=== PATIENT | female | born 1990 | race Caucasian/White ===

== ENCOUNTER 2016-07-13 02:43 | Inpatient (IN) | payer OTHER ==
[~2016-07-13] VITALS: Ht 157.5 cm; Wt 62.1 kg
[2016-07-13] VITALS (13 sets, daily range): BP systolic 93–110; BP diastolic 47–69; PULSE 120–140; RESP 16–29; O2SAT 85–100
[~2016-07-13 02:43] MED LIST: Albuterol 2.5 mg/3 mL Inhalation Solution NEB ONE; Albuterol-Ipratropium 3 mL Inhalation Solution ONE
[2016-07-13] MEDS ORDERED: Albuterol 2.5 mg/3 mL Inhalation Solution NEB ONE ×2 (02:45→02:50)
[2016-07-13] MEDS ORDERED: 0.9% Sodium Chloride 1,000 ML IV ONE (02:46)
[2016-07-13] MEDS ORDERED: Dexamethasone 10 mg/mL Inj IVPUSH ONE (02:50)
[2016-07-13] MEDS ORDERED: Magnesium Sulf 2 Gm/50mL Water 2 GM in IV Premix 1 EACH IV ONE (02:50)
[2016-07-13] MEDS ORDERED: Albuterol-Ipratropium 3 mL Inhalation Solution NEB ONE (02:50)
--- NOTE | 2016-07-13 02:59 | ED.REPORT ---
HPI-Dyspnea / Wheezing Date of Service Jul 13, 2016 ED Provider: Dimas Javier MD Patient is a 26 year old female with a history of asthma previously requiring intubation for asthma exacerbations who presents to the ED via EMS in respiratory distress that began just prior to arrival. Patient was seen by EMS earlier tonight for shortness of breath but refused transport. She had access to her inhalers but her not her nebulizer. She received several nebulizer treatments from EMS. EMS was called back to the residence several hours later. They found the patient with an O2 sat in the 70s and tachycardic. She received 125mg of Solu-Medrol, 2x doses of epinephrine, and continuous albuterol treatments, improved to the 80s on arrival to the ED.. Patient is very anxious and has been requesting a benzodiazepine for her anxiety. The patient quit smoking cigarettes 3 weeks ago but still lives in a trailer with other smokers. Patient is unable to provide any history due to her severe respiratory distress. Nursing Notes Stated Complaint: SOB Chief Complaint: Respiratory Distress Nursing Notes Reviewed: Yes Allergies: Coded Allergies: No Known Allergies (Unverified , 07/13/16) General Time Seen by MD: 02:45 Chief Complaint Asthma attack Hx Obtained From: Patient Unable to Obtain Hx: Patient condition Arrived By: Ambulance Sudden in Onset?: No Onset Occurred: Just prior to arrival Context of Onset: Asthma attack Symptom Duration: Since onset Similar Sx Previous: Yes Past Medical History Past Medical History previous hospital admissions for asthma exacerbations, with intubation Reports: Asthma Past Surgical History none reported Smoking History Former Smoker (quit 3 weeks ago, lives with other smokers) Social History Other Social History: Local resident Ambulatory Status Independent Review of Systems Unable to Obtain ROS Patient condition (patient is in respiratory distress) Physical Exam Initial Vital Signs Vital Signs (First) Date Time Temp Pulse Resp B/P Pulse Ox O2 Delivery O2 Flow Rate FiO2 07/13/16 02:43 135 29 85 Non-Rebreather 10 07/13/16 03:16 107/69 07/13/16 03:44 40 Initial VS: Reviewed Head / Eyes: Atraumatic, Normocephalic, PERRL ENT: Conjunctiva normal, No scleral icterus Neurologic: Alert, Nonfocal General/Constitutional: Awake Distress / Hydration: Positive: Distress severe Behavior: Positive: Anxious Neck: Supple, No JVD Respiratory / Chest: No rales, No rhonchi Resp Distress / Stridor: Positive: Resp distress severe Wheezing / Retractions: Positive: Wheeze insp/exp diffuse Hyperventilating. Overt wheezing with prolonged expiratory phase. Cardiovascular: Regular rhythm, Heart sounds NL Heart Rate / Rhythm: Positive: Tachycardia Abdomen: Soft, Non-tender, No guarding, No rebound Lower Extremity / Pelvis / MS: No swelling, No edema Skin: Warm Color / Condition: Positive: Diaphoresis present Upper Extremity / MS: No swelling, No edema Interpretation & Diagnostics Lab Results Interpretation Result Diagram: 07/13/16 0250 07/13/16 0250 Test 07/13/16 02:50 White Blood Count 19.2th/mm3 (3.8-10.1) Red Blood Count 4.67mil/mm3 (3.90-5.20) Hemoglobin 14.1g/dL (12.0-15.6) Hematocrit 42.1% (35.0-46.0) Mean Corpuscular Volume 90.1fL (81-100) Mean Corpuscular Hemoglobin 30.2pg (27.0-35.0) Mean Corpuscular Hemoglobin Concent 33.5% (32.0-37.0) Red Cell Distribution Width 12.8% (12.3-15.4) Platelet Count 549bil/L (150-400) Neutrophils (%) (Auto) 37% (40-74) Lymphocytes (%) (Auto) 54% (14-46) Monocytes (%) (Auto) 2% (4-12) Eosinophils (%) (Auto) 7% (0-5) Basophils (%) (Auto) 0% (0-3) Band Neutrophils % 0% (1-5) Prothrombin Time 11.5sec (8.1-12.5) Prothromb Time International Ratio 1.07ratio Activated Partial Thromboplast Time 26.0sec (22.8-33.0) Sodium Level 142mEq/L (134-144) Potassium Level 4.2mEq/L (3.5-5.2) Chloride Level 105mEq/L (97-108) Carbon Dioxide Level 22mmol/L (18-29) Blood Urea Nitrogen 14mg/dL (6-20) Creatinine 0.74mg/dL (0.57-1.00) Estimat Glomerular Filtration Rate 138mL/min (>59) Glucose Level 162mg/dL (60-99) Calcium Level 8.7mg/dL (8.5-10.1) Magnesium Level 2.2mg/dL (1.6-2.6) Total Bilirubin 0.2mg/dL (0.0-1.2) Aspartate Amino Transf (AST/SGOT) 19U/L (0-50) Alanine Aminotransferase (ALT/SGPT) 21U/L (0-32) Alkaline Phosphatase 85U/L (25-150) Troponin T 0.010ug/L (0.0-0.011) Pro-B-Type Natriuretic Peptide 22pg/mL (0-130) Total Protein 6.7g/dL (6.4-8.4) Albumin 4.0g/dL (3.4-5.0) Procalcitonin 0.04ng/mL (0.00-0.08) Hold Morel Top Tube Received (Received) ABG Interpretation ABG Interpretation: pH: 7.244 pCO2: 58 cBase: -3.6 Exam Performed by: [facility] pract Exam Interpreted by: ED physician X-Ray Chest Interpretation Chest Xray Interpretation: Impression: Air trapping, no acute infiltrate. View: Portable Interpretation / Wet Read by: Wet read ED physician Re-Eval/Medical Decision Med Decision/Clinical Course 26-year-old with severe asthma presents in extremis with hypoxemia and hypercarbia. Initially she was unable to tolerate BiPAP, but with a very small dose of Ativan, has been calm her and able to tolerate it. Repeat blood gas is improved, though not normal. She has been on continuous nebs, received also Decadron for a slightly speedier response, as well as magnesium IV. She is admitted now to the ICU for further evaluation and management. Chest x-rays without evidence of infiltration. Source of Hx: Old records Re-Evaluation/Progress #1: Time of Eval: 02:47 Re-Evaluation/Progress Note: The patient is to be placed on BiPAP. However she is refusing BiPAP until she has received anxiety medication. Re-Evaluation/Progress #2: Time of Eval: 03:03 Re-Evaluation/Progress Note: Rechecked the patient. She continues to refuse BiPAP. Re-Evaluation/Progress #3: Time of Eval: 03:31 Re-Evaluation/Progress Note: Patient continues to have difficulty breathing but is improved. She is now on BiPAP. Re-Evaluation/Progress #4: Time of Eval: 04:08 Re-Evaluation/Progress Note: Rechecked the patient. Her prolonged expiratory phase is improved. Consultation : Referral / Consult Name: Isaiah Nicole MD Consulted With: Hospitalist Call Returned at: 04:19 Fine Arts Chair: Will see patient, Agrees with eval, Agrees with plan, Accepts admit Note: Spoke with Dr. Nicole, hospitalist, who agrees to accept admit. Counseled Regarding: Diagnosis, Lab results, Need for admission Discharge & Departure Impression: Primary Impression: Respiratory distress Additional Impression: Status asthmaticus Asthma severity: unspecified severity Qualified Code: J45.902 - Unspecified asthma with status asthmaticus Disposition: ADMITTED TO HOSPITAL Discharge Condition All VS Reviewed: Yes Condition: Critical Referrals: Juan Encinas MD (PCP) Crit Care Except Billable Proc Time Spent: 30-74 minutes (sixty minutes) Services Performed: Patient management by me, Time spent at bedside, Reviewing test results, Reviewing imaging, Discussing patient care, Documentation in record Scribe Attestation Portions of this note were transcribed by Roxanne Watt. I, Dr. Javier personally performed the history, physical exam and medical decision-making; I reviewed and confirmed the accuracy of the information in the transcribed note. Signed by: Dixie Conte, 07/13/2016 0423 copies to: Juan Encinas MD, Christopher W MD Jul 13, 2016 02:59 Roxanne Watt Jul 13, 2016 03:00
[2016-07-13 03:00] LABS: Mean Corpuscular Hemoglobin 30.2 pg (27.0-35.0); Mean Corpuscular Volume 90.1 fL (81-100)
[2016-07-13 03:16] LABS: BASOPHILS % (AUTO) 0 % (0-3); EOSINOPHILS % (AUTO) 7 % (0-5); MONOCYTES % (AUTO) 2 % (4-12); NEUTROPHILS % (AUTO) 37 % (40-74); Platelet Count 549 bil/L (150-400)
--- NOTE | 2016-07-13 03:18 | ABG ---
DateTimeAnalyzed 03:12:00 -_ pH ____7.244 - 7.350 7.450 pCO2 ___58.1__ -mmHg 35.0 45.0 pO2 ___94.2__ -mmHg 69.0 116 HCO3- ___24.2__ -mmol/L 22.0 26.0 ABE ___-3.6__ -mmol/L -2.0 2.0 tHb ___13.4__ -g/dL O2Hb ___94.5__ -% COHb ____0.6__ -% MetHb ____0.8__ -% sO2 ___95.8__ -% FIO2 ___48.0__ -% Drawn By MM - Date/Time Notified____ 03:17:00 -_ Spontaneous_RR ___24.0__ -b/min Liter_Flow ____7.0__ -L/min Oxygen Device 1 SVN - Notified By MM - Notified Whom DR JACK - B 751 -mmHg tO2 ___17.9__ -Vol% Americo test _Positive -
[2016-07-13 03:23] LABS: INR 1.07 ratio
[2016-07-13 03:31] LABS: Magnesium 2.2 mg/dL (1.6-2.6)
[2016-07-13 03:32] LABS: TROPONIN T 0.01 ug/L (0.0-0.011)
[2016-07-13] MEDS ORDERED: Senna-Docusate 8.6-50 mg Tablet PO PRN (04:20)
[2016-07-13] MEDS ORDERED: Alum-Mag Hydrox-Simeth 30 mL Suspension PO PRN (04:20)
[2016-07-13] MEDS ORDERED: Polyethylene Glycol (PEG) 17 Gm Powder PO PRN (04:20)
[2016-07-13] MEDS ORDERED: Ondansetron 2 mg/mL 2 mL Inj IVPUSH PRN (04:20)
--- NOTE | 2016-07-13 04:24 | ABG ---
DateTimeAnalyzed 04:19:00 -_ pH ____7.317 - 7.350 7.450 pCO2 ___44.4__ -mmHg 35.0 45.0 pO2 110 -mmHg 69.0 116 HCO3- ___22.1__ -mmol/L 22.0 26.0 ABE ___-3.5__ -mmol/L -2.0 2.0 tHb ___12.4__ -g/dL O2Hb ___96.4__ -% COHb ____0.6__ -% MetHb ____1.0__ -% sO2 ___98.0__ -% FIO2 ___40.0__ -% CPAP ___12.0__ -cmH2O PEEP ____5.0__ -cmH2O Set_RR ___22.0__ -b/min Drawn By MM - Date/Time Notified____ 04:24:00 -_ Spontaneous_RR ___27.0__ -b/min Oxygen Device 1 ____BIPAP - Notified By MM - Notified Whom DR JACK - B 751 -mmHg tO2 ___17.0__ -Vol% Americo test _Positive -
--- NOTE | 2016-07-13 04:30 | PCM.HPMED ---
Subjective Date of Service Jul 13, 2016 Primary Provider: Admitting Physician: Primary Care Physician: Juan Encinas MD Attending Physician: Admit Status: From the Emergency Department, Full Admit, Critical Care Chief Complaint: Acute shortness of breathe History of Present Illness: Georgia Sanchez is a 26 year old female with Asthma who presents to [facility] emergency department via EMS in acute respiratory distress. Patient reported the onset was just prior to arrival. Patient was seen by EMS earlier tonight but refused transport. She had access to her inhalers but her not her nebulizer, receiving several nebulizer treatments from EMS. They left her improved, but were then called back to the residence several hours later as she developed difficulty breathing again. Trigger was likely dogs at the home and possible allergies from pollens. Denies any new carpets They found the patient with low saturation around 70s and tachycardic. She received 125mg of Solu-Medrol, 2x doses of epinephrine, and continuous albuterol treatments. Patient is very anxious and has been requesting a benzodiazepine for her anxiety. The patient quit smoking cigarettes 3 weeks ago but still lives in a trailer with other smokers. Patient is unable to provide any further history due to her severe respiratory distress. Case discussed with Dr Javier, Magnesium and rounds of bronchodilator initially ineffective but BIPAP provide some improvement, especially addition of benzodiazepines while calmed her down Review of Systems: Pertinent positives as noted in HPI. All other systems were reviewed and are negative Allergies Coded Allergies: No Known Allergies (Unverified , 07/13/16) Home Medications inhalers PMH Asthma Anxiety disorder . Surgical History Denies Family History Both parents healthy Social History Hx Alcohol Use: No Hx Substance Use: No Hx Tobacco Use: Yes Smoking Status: Former Smoker (quit 3 weeks ago, lives with other smokers) Living Arrangement: with Family Exam Vital Signs Vital Sign - Last Date Time Temp Pulse Resp B/P Pulse Ox O2 Delivery O2 Flow Rate FiO2 07/13/16 03:44 132 27 100 BiPAP 40 07/13/16 03:16 107/69 10 Exam General: Alert, Oriented X3, Cooperative, No acute Distress Eyes: PERRLA, Scleral Anicteric Mouth: Mouth Normal, Mucous Membranes Moist/[place] Neck: Supple, no Thyromegaly, trachea central. Chest & Lungs: Clear to auscultation & percussion, No adventitious breath sounds, no crackles, no wheeze Cardiovascular: Normal S1, Normal S2, No Murmurs/Rubs/Gallops, Regular Rate/ Rhythm, Murmur, Other (No JVD, no peripheral edema) Pulses: Radial (present and equal), Dorsalis Pedi (present and equal) Abdomen: Soft, Non-tender, Non-distended, Normoactive bowel tones. Musculoskeletal: Unremarkable. Normal range of motion, no swollen or erythematous joints Extremities: No edema, no cyanosis, no clubbing. Skin: No rashes. Warm and dry, no erythematous areas Neurological: Grossly neurologically intact, has generalized weakness, Normal Speech, Sensation Intact Lymphatic: Lymph nodes Cervical and Axillary not palpable. Lab and Diagnostics Labs Laboratory Tests Test 07/13/16 02:50 White Blood Count 19.2th/mm3 (3.8-10.1) Red Blood Count 4.67mil/mm3 (3.90-5.20) Hemoglobin 14.1g/dL (12.0-15.6) Hematocrit 42.1% (35.0-46.0) Mean Corpuscular Volume 90.1fL (81-100) Mean Corpuscular Hemoglobin 30.2pg (27.0-35.0) Mean Corpuscular Hemoglobin Concent 33.5% (32.0-37.0) Red Cell Distribution Width 12.8% (12.3-15.4) Platelet Count 549bil/L (150-400) Neutrophils (%) (Auto) 37% (40-74) Lymphocytes (%) (Auto) 54% (14-46) Monocytes (%) (Auto) 2% (4-12) Eosinophils (%) (Auto) 7% (0-5) Basophils (%) (Auto) 0% (0-3) Band Neutrophils % 0% (1-5) Prothrombin Time 11.5sec (8.1-12.5) Prothromb Time International Ratio 1.07ratio Activated Partial Thromboplast Time 26.0sec (22.8-33.0) Sodium Level 142mEq/L (134-144) Potassium Level 4.2mEq/L (3.5-5.2) Chloride Level 105mEq/L (97-108) Carbon Dioxide Level 22mmol/L (18-29) Blood Urea Nitrogen 14mg/dL (6-20) Creatinine 0.74mg/dL (0.57-1.00) Estimat Glomerular Filtration Rate 138mL/min (>59) Glucose Level 162mg/dL (60-99) Calcium Level 8.7mg/dL (8.5-10.1) Magnesium Level 2.2mg/dL (1.6-2.6) Total Bilirubin 0.2mg/dL (0.0-1.2) Aspartate Amino Transf (AST/SGOT) 19U/L (0-50) Alanine Aminotransferase (ALT/SGPT) 21U/L (0-32) Alkaline Phosphatase 85U/L (25-150) Troponin T 0.010ug/L (0.0-0.011) Pro-B-Type Natriuretic Peptide 22pg/mL (0-130) Total Protein 6.7g/dL (6.4-8.4) Albumin 4.0g/dL (3.4-5.0) Procalcitonin 0.04ng/mL (0.00-0.08) Hold Morel Top Tube Received (Received) Result Diagram: 07/13/1624907/13/16249 Assessment & Plan Georgia Sanchez is a 26 year old female with Asthma who presents to [facility] emergency department via EMS in acute respiratory distress. 1. Acute Hypoxic Respiratory Failure. Present on admission Due to Asthma exacerbation. Differential diagnosis includes Pulmonary embolism ( low probability with low Well score), Pneumonia also felt to be less likely. - oxygen supplementation and BIPAP - treat underlying cause (see below) 2. Asthma exacerbation. Present on admission Severe with prior history of exacerbation requiring intubation. Trigger unclear but a combination of pollen and dog hair exposure - continue DuoNeb scheduled - systemic steroids Solu-Medrol 80 IV q 8 hours - avoid triggers - smoking cessation encouraged - Singulair daily - Pulmonology consult planned 3. Leukocytosis, Acute with possible Systemic inflammatory response. Present on admission Chest X ray showed no pneumonia of pleural effusion - monitor for infection such as pneumonia - possible patient has a viral infection 4. Thrombocytosis, Chronic Likely reactive with no complications 5. Nicotine dependence Cessation discussed and encouraged. Failed attempts to stop prior, last smoking 3 weeks prior but is a current second hand exposure - Nicotine patch upon request - Acetaminophen as needed for mild pain/fever/headache - Bowel regimen as needed - Antiemetic as needed Patient admitted under inpatient status with expected length of stay > 2 midnights for severity of present symptoms, complexities of treatment plan and risk for adverse event. VTE Prophylaxis: Sub-Q Heparin (Unfractionated) Resuscitation Status: CPR: Attempt Resuscitation Time spent 50 minutes Critical care time spend Isaiah Nicole MD Jul 13, 2016 04:30
[2016-07-13] MEDS: Albuterol-Ipratropium 3 mL Inhalation Solution NEB SCH ×5 (05:11→19:40)
--- NOTE | 2016-07-13 05:40 | NUR ---
Admit note: Pt arrived to room 2015 per cart from ED at 0450. Pt is drowsy to lightly sedated does mumble when asked questions. Pt lefted over to bed with assist x4. Pt was on Bipap at 30% 02/21. Monitor applied shows sinus tach 120-130s spo3 96-100%. Dr Nicole into see pt.
[2016-07-13] MEDS: Heparin 5,000 Unit/mL Inj SUBQ SCH ×2 (07:45→15:28)
[2016-07-13] MEDS: MethylprednisoLONE Sodium Succinate 40 mg/mL Inj IVPUSH SCH ×2 (07:45→16:30)
[2016-07-13] MEDS ORDERED: LORazepam 2 mg Tablet PO ONE (07:55)
--- NOTE | 2016-07-13 08:16 | PCM.PNMED ---
Subjective Date of Service Jul 13, 2016 Subjective She is feeling very anxious. She does have some history of anxiety. She is still short of breath. No chest pain. No abdominal pain. She is concerned about cellulitis in her legs and notes that they have both been red for several days. No fevers or chills. She has been intubated once in the past. Exam Vital Signs Vital Sign - Last Date Time Temp Pulse Resp B/P Pulse Ox O2 Delivery O2 Flow Rate FiO2 07/13/16 07:39 36.4 130 17 100/51 99 BiPAP 30 07/13/16 03:16 10 Exam Alert and oriented -3, on BiPAP very anxious.. Fluent speech Anicteric sclera. Normal oropharynx. Lungs are notable for expiratory greater than inspiratory diffuse wheezing. Her total volume is about 800. With normal rate and effort Heart is regular without murmur gallop or rub, tachycardic. Abdomen soft nontender, flat Extremities are free of edema. Skin is free of rash or lesions except the legs which are red bilaterally.. IVs and Medications Medications Reviewed: Medications were reviewed in detail Lab and Diagnostics Result Diagram: 07/13/16 0250 07/13/16 0250 Assessment & Plan Georgia Sanchez is a 26 year old female with Asthma who presents to [facility] emergency department via EMS in acute respiratory distress. #. Acute Hypoxic Respiratory Failure. Present on admission Due to Asthma exacerbation. Differential diagnosis includes Pulmonary embolism ( low probability with low Well score), Pneumonia also felt to be less likely. - oxygen supplementation and BIPAP - treat underlying cause (see below) No change in treatment plan for today. We will also treat anxiety to help tolerate the BiPAP. #. Asthma exacerbation. Present on admission Severe with prior history of exacerbation requiring intubation. Trigger unclear but a combination of pollen and dog hair exposure - continue DuoNeb scheduled - systemic steroids Solu-Medrol 80 IV q 8 hours - avoid triggers - smoking cessation encouraged - Singulair daily - Pulmonology consult planned No change to this treatment plan other than we will also add antihistamines. #. Leukocytosis, Acute with possible Systemic inflammatory response. Present on admission Chest X ray showed no pneumonia of pleural effusion - monitor for infection such as pneumonia - possible patient has a viral infection #. Thrombocytosis, Chronic Likely reactive with no complications #. Nicotine dependence, she did state that she quit 3 weeks ago. Cessation discussed and encouraged. Failed attempts to stop prior, last smoking 3 weeks prior but is a current second hand exposure - Nicotine patch upon request #. Severe anxiety. POA. Will continue to use lorazepam as needed. - Acetaminophen as needed for mild pain/fever/headache - Bowel regimen as needed - Antiemetic as needed Patient admitted under inpatient status with expected length of stay > 2 midnights for severity of present symptoms, complexities of treatment plan and risk for adverse event. VTE Prophylaxis: Sub-Q Heparin (Unfractionated) Resuscitation Status: CPR: Attempt Resuscitation Americo Woods MD Jul 13, 2016 08:16
--- NOTE | 2016-07-13 09:18 | DRSVH ---
PROCEDURE: X-RAY CHEST ONE VIEW, PORTABLE ([id number]) INDICATIONS: asthma, resp failure TECHNIQUE: One view of the chest was acquired. COMPARISON: None. FINDINGS: Surgical changes and devices: None. Lungs and pleura: No pleural effusions or pneumothorax. Lungs are clear and hyperinflated. Mild in terstitial prominence. Mediastinum: Mediastinal contours appear normal. Heart size is normal. Bones and chest wall: No suspicious bony lesions. Overlying soft tissues appear unremarkable. IMPRESSION: Mild interstitial prominence and mild hyperinflation in this patient with history of asth ma. No focal lung consolidation. Dictated by: [facility] Interpreted: Rey Cuevas MD on 07/13/2016 at 9:16 Transcribed by: YADIEL on 07/13/2016 at 9:17 Approved by: Rey Cuevas M.D. on 07/13/2016 at 15:40
[2016-07-13] MEDS: 0.9% Sodium Chloride 1,000 ML IV SCH ×2 (10:10→18:44)
--- NOTE | 2016-07-13 10:17 | NUR ---
NUTRITION ASSESSMENT: ASSESS: Pt is a 26yo F admitted to CCU for respiratory distress and asthma. She is currently on BIPAP. She has been NPOx1 day. PMHX: Asthma, BIPAP LABS: Reviewed. Glu 162, Alb 4.0 MEDS: Reviewed. Solu-medrol GI: 0 BM SKIN: Bernard 14, some cellulitis in legs CURRENT WTS: 40.9kg, BMI 16.5kg/m2, IBW 50kg DIET: NPO EST. NEEDS: wt gain Kcals: 1025-1230kcal/day (25-30kcal/kg) Pro: 60-75g/day (1.2-1.5g/kg IBW) Fluids: 1025-1230ml/day (25-30ml/kg) NUTRITION DIAGNOSIS: 1.) Inadequate oral intake related to decreased ability to consume sufficient energy as evidenced by current NPO status NUTRITION INTERVENTION: 1.) Will continue to monitor NPO status. Recommend advance diet when medically appropriate. MONITOR / EVAL: NPO, BIPAP, wt, GI, labs, POC, nutrition status. Will continue to monitor per high nutrition risk guidelines.
[2016-07-13] MEDS: diphenhydrAMINE 25 mg Capsule PO SCH ×3 (12:38→19:32)
--- NOTE | 2016-07-13 14:11 | PCM.PNMED ---
Subjective Date of Service Jul 13, 2016 Subjective PULMONOLOGY CONSULTATION Note that patient is on BiPAP and in some distress this morning and is not talking much except for requesting something for her anxiety. From records review: Ms Sanchez is a 26 year-old female Asthma and a history of intubation x1 who presented to [facility] emergency department via EMS in acute respiratory distress. EMS was called to patient's home earlier in the day yesterday and she was given several nebulizer treatments but she refused to go to the hospital at that time. Some hours later, EMS was again called. Her O2 sat was 70% and she was tachycardic. Given 125mg of Solu-medrol and 2 doses of epinephrine and continuous albuterol treatments and was saturating 80s when arrived in the ED. In the ED, she was given dexamethasone and magnesium. Initial AB.317 / pCO2 58. Repeat was 7.317 / 44. It was by night hospitalist that she had quite a bit of dog hair on her legs. Chest x-ray showed air trapping but no infiltrated. I was able to get from patient that she gave up smoking 3 weeks ago but still lives with smokers. She has dogs in the home which she suspects she may be allergic to. Thinks that she had a "little cold" for the past couple of days. Interview was cut short as she was concentrating on needing something for her anxiety. . Exam Vital Signs Vital Sign - Last Date Time Temp Pulse Resp B/P Pulse Ox O2 Delivery O2 Flow Rate FiO2 07/13/16 12:57 125 17 102/47 98 30 07/13/16 12:39 36.5 BiPAP 07/13/16 03:16 10 Exam Gemeral: Pale, alert and oriented, on BiPAP. Some distriess - very anxious. HEENT: Anicteric sclera. NCAT, normal oropharynx. Pulmonary: Lungs are notable for expiratory greater than inspiratory diffuse wheezing. Able to speak in full sentences. Her total volume is about 800. With normal rate and effort CV: tachycardic, Regular rhythm. No murmur, gallop or rub Abdomen: soft, nontender, normal bowel sounds Extremities: No edema. Skin: Free of rash or lesions. LE mildly erythematous b/l IVs and Medications Medications Reviewed: Medications were reviewed in detail Lab and Diagnostics Result Diagram: 07/13/16 0250 07/13/16 0250 X-Rays, CTs and MRIs Date of Service: 07/13/16 X-RAY CHEST ONE VIEW, PORTABLE IMPRESSION: Mild interstitial prominence and mild hyperinflation in this patient with history of asthma. No focal lung consolidation. Dictated by: Ash Joyner RRDerrell Interpreted: Rey Cuevas MD on 07/13/2016 at 9: 16 . Assessment & Plan Georgia Sanchez is a 26 year old female with asthma and history of intubation x1 who presented to [facility] emergency department via EMS in acute respiratory distress. 1. Acute Hypoxic Respiratory Failure secondary to asthma exacerbation. Present on admission, improving 2. Asthma exacerbation. Present on admission 3. Leukocytosis, possible Systemic inflammatory response. Present on admission 4. Thrombocytosis, present on admission 5. Severe anxiety, present on admission 6. Medication non-compliance Asthmatic patient who is currently saturating well on BiPAP. She was very anxious then after receiving lorazepam, was able to calm down and fall asleep. Per medication nurse, she has not picked up her home medications at the pharmacy since February 2016. Although patient has an elevated WBC, x-ray does not show consolidation and patient remains afebrile therefore consider pneumonia less likely. - Continue supportive treatment with BiPAP, DuoNebs, Solu-Medrol 80mg IV q8hrs, lorazepam for anxiety, benadryl (when patient more alert) for possible allergic reaction and as axiolytic, singulair - When patient is more alert, need to address many issues: - triggers: second hand smoke, animals, pollens, chemical exposures - medication non-compliance - explore lifestyle choices, recreational drug use(?), cessation of smoking ( per records, patient has quit many times) - Urinary tox screen ordered - Monitor for infectious cause such as pneumonia Thank you for this consultation. Total time: 60 minutes Pulmonary/Critical Care Attending Ms Sanchez is a 26yo woman with known asthma and a prior exacerbation requiring intubation and mechanical ventilation who was admitted overnight with acute exacerbation of asthma with hypoxic and hypercapneic respiratory failure. She has responded to usual therapies and BiPAP support with an improved ABG and decreased distress. She remains very tight with poor expiratory flows. She has needed several doses of lorazepam to deal with her dyspnea-induced anxiety and tachypnea. She did desaturate off BiPAP promptly and profoundly. We will continue our current level of aggressive support while awaiting decrease in her airway inflammation and need for BiPAP. We will need to obtain more Hx about her triggers and level of function prior to the acute decompensation. I suspect that she will need significant asthma education and we will need to investigate her social support to prevent further exacerbations. VTE Prophylaxis: Sub-Q Heparin (Unfractionated) Resuscitation Status: CPR: Attempt Resuscitation Attending Statement The patient was seen and examined together with Dr. Lxu today and I have added additional information to the note above. Hattie Lux DO Jul 13, 2016 14:11 Keith Gill MD Jul 13, 2016 17:24
--- NOTE | 2016-07-13 16:00 | NUR ---
Tele / Oxygen / Activity: Tele: Sinus tach 115-130. BP stable with map ranging from mid 50-70. Pt denies CP, palpitations. SpO2: high 90's to 100% on BiPAP 30% 02/21. Pt was changed to 3L NC and SpO2 dropped to 70's when she got up to BSC and was tachypnic, significantly SOB. Pt was assisted back to bed and placed back on BiPAP. SpO2 recovered quickly back up to high 90's. Pt reported anxiety and requested Ativan. MD was notified. Ativan 1mg IVP was administered and patient was able to rest quietly with eyes closed.
[2016-07-13 16:03] LABS: APPEARANCE,URINE CLEAR (CLEAR,HAZY); COLOR,URINE YELLOW (YELLOW); OCCULT BLOOD,URINE NEGATIVE (NEGATIVE); UROBILINOGEN,URINE NORMAL (NORMAL)
[2016-07-13] MEDS ORDERED: fentaNYL-PF 50 mCg/mL 2 mL Inj IVPUSH PRN (20:00)
--- NOTE | 2016-07-13 20:01 | PCM.PNMED ---
Subjective Date of Service Jul 13, 2016 Subjective Nurse called that patient confessed on smoked $30 worth of Heroine yesterday prior to her acute Asthma exacerbation. Urine drug screen positive for Opioid, Methadone and Methamphetamine Isaiah Nicole MD Jul 13, 2016 20:01
[2016-07-14] VITALS (15 sets, daily range): BP systolic 89–112; BP diastolic 47–58; PULSE 98–127; RESP 16–31; O2SAT 93–99
[2016-07-14] MEDS: MethylprednisoLONE Sodium Succinate 40 mg/mL Inj IVPUSH SCH ×2 (00:02→09:27)
[2016-07-14] MEDS: Heparin 5,000 Unit/mL Inj SUBQ SCH ×4 (00:02→23:53)
[2016-07-14] MEDS: Albuterol-Ipratropium 3 mL Inhalation Solution NEB SCH ×6 (00:46→19:54)
--- NOTE | 2016-07-14 00:50 | NUR ---
P) Respiratory/Cardiac/withdrawal Pt.'s lungs with decreased breath sounds, tight, scattered inspiratory and expiratory wheezes, severe full body tremors when awake and agitated when awake, stated she was worried bout heroin withdrawal, used $30.00 worth before calling ambulance, smoked it. Short discussion about how smoking anything with asthma was a poor decision. SPO2 in low to mid 90's on bipap at 30%, cardiac rhythm sinus tach, 110-120's. No c/o nausea or vomiting, in fact stated she was "starving", gave oral meds with water, no difficulty swallowing. I) Informed Hospitalist of heroin use and possible withdrawal, got order for fentanyl if pt. becomes symptomatic. E) Pt. calms with ativan and is sleeping, wakes easily, denies pain.
[2016-07-14] MEDS: diphenhydrAMINE 25 mg Capsule PO SCH ×3 (02:51→14:20)
[2016-07-14] MEDS: 0.9% Sodium Chloride 1,000 ML IV SCH ×2 (04:06→14:33)
--- NOTE | 2016-07-14 04:43 | ABG ---
DateTimeAnalyzed 04:39:00 -_ pH ____7.376 - 7.350 7.450 pCO2 ___37.2__ -mmHg 35.0 45.0 pO2 155 -mmHg 69.0 116 HCO3- ___21.3__ -mmol/L 22.0 26.0 ABE ___-2.9__ -mmol/L -2.0 2.0 tHb ___12.0__ -g/dL O2Hb ___97.9__ -% COHb ____0.6__ -% MetHb ____0.8__ -% sO2 ___99.3__ -% FIO2 ___30.0__ -% CPAP ___12.0__ -cmH2O PEEP ____5.0__ -cmH2O Set_RR ___10.0__ -b/min Drawn By MK - Date/Time Notified____ 04:43:00 -_ Spontaneous_RR ___18.0__ -b/min Oxygen Device 1 ____BIPAP - Notified By MK - B 758 -mmHg tO2 ___16.8__ -Vol% Americo test _Positive -
[2016-07-14 08:40] LABS: BASOPHILS % (AUTO) 0.1 % (0-3); EOSINOPHILS % (AUTO) 0 % (0-5); MONOCYTES % (AUTO) 1.8 % (4-12); Mean Corpuscular Hemoglobin 30.5 pg (27.0-35.0); Mean Corpuscular Volume 92.2 fL (81-100); NEUTROPHILS % (AUTO) 93.1 % (40-74); Platelet Count 263 bil/L (150-400)
--- NOTE | 2016-07-14 09:12 | PCM.PNMED ---
Subjective Date of Service Jul 14, 2016 Subjective patient is somnolent and on BiPAP this morning. She really does not answer questions. She received some lorazepam for her anxiety several hours ago. She is over ventilated without difficulty. ROS subjective otherwise not obtainable. Exam Vital Signs Vital Sign - Last Date Time Temp Pulse Resp B/P Pulse Ox O2 Delivery O2 Flow Rate FiO2 07/14/16 07:57 117 18 105/58 98 21 07/14/16 07:55 CPAP/BIPAP 07/14/16 07:55 36.7 07/13/16 03:16 10 Intake and Output 07/13/16 07/13/16 07/14/16 Cumulative From/Thru 15:00 23:00 07:00 07/13/16 05:28 - 07/14/16 06:14 Intake Total 846 ml 1429 ml 2275 ml Output Total 450 ml 500 ml 950 ml Balance 396 ml 929 ml 1325 ml Intake Oral 0 ml 300 ml 300 ml IV Total 846 ml 1129 ml 1975 ml Output Urine Total 450 ml 500 ml 950 ml # Bowel Movements 0 0 Exam Comfortable in appearance. She is on BiPAP. Anicteric sclera. Lungs are oval for expiratory wheezing but relatively good air movement and good tidal volume. With normal rate and effort Heart is regular without murmur gallop or rub Abdomen soft nontender, flat Extremities are free of edema. Skin is free of rash or lesions. IVs and Medications Medications Reviewed: Medications were reviewed in detail Lab and Diagnostics Result Diagram: 07/14/16 0820 07/13/16 0250 X-Rays, CTs and MRIs Date of Service: 07/13/16 X-RAY CHEST ONE VIEW, PORTABLE IMPRESSION: Mild interstitial prominence and mild hyperinflation in this patient with history of asthma. No focal lung consolidation. Dictated by: Ash Joyner RRDerrell Interpreted: Rey Cuevas MD on 07/13/2016 at 9: 16 . Assessment & Plan #. Acute Hypoxic Respiratory Failure. Present on admission, this is stable but not dramatically improved. Due to Asthma exacerbation. Differential diagnosis includes Pulmonary embolism ( low probability with low Well score), Pneumonia also felt to be less likely. - oxygen supplementation and BIPAP - treat underlying cause (see below) No change in treatment plan for today. We will also treat anxiety to help tolerate the BiPAP. #. Asthma exacerbation. Present on admission, this is stable and slowly improving. Severe with prior history of exacerbation requiring intubation. Trigger unclear but a combination of pollen and dog hair exposure - continue DuoNeb scheduled - systemic steroids Solu-Medrol 80 IV q 8 hours - avoid triggers - smoking cessation encouraged - Singulair daily -No change to current medical therapy. #. Leukocytosis, Acute with possible Systemic inflammatory response. Present on admission and improving. Chest X ray showed no pneumonia of pleural effusion - monitor for infection such as pneumonia - possible patient has a viral infection #. Thrombocytosis, Chronic and stable. Likely reactive with no complications #. Nicotine dependence, she did state that she quit 3 weeks ago. Cessation discussed and encouraged. Failed attempts to stop prior, last smoking 3 weeks prior but is a current second hand exposure - Nicotine patch upon request #. Severe anxiety. POA. Will continue to use lorazepam as needed. #. Polysubstance abuse. The patient's urine tox did come back positive for opiates as well as methamphetamines. She did report smoking heroin which is part of her trigger as well as medication noncompliance and possible allergens from our care. There is no evidence of severe moderate withdrawal at this point. We will continue to follow clinically. Full resuscitation Inpatient status. VTE Prophylaxis: Sub-Q Heparin (Unfractionated) Resuscitation Status: CPR: Attempt Resuscitation Americo Woods MD Jul 14, 2016 09:12
[2016-07-14] MEDS ORDERED: Calcium GLUCO 10% (Gm) Inj 2 GM in 0.9% Sodium Chloride 100 ML IV ONE (10:00)
[2016-07-14] MEDS ORDERED: Calcium GLUCO 10% (Gm) 1 Gm/10 mL 50 mL Inj IV ONE (10:05)
[2016-07-14] MEDS ORDERED: Calcium GLUCO 10% (Gm) Inj 2 GM in Dextrose 5% 100 ML IV ONE (10:45)
--- NOTE | 2016-07-14 10:59 | PCM.PNMED ---
Subjective Date of Service Jul 14, 2016 Subjective PULMONOLOGY PROGRESS NOTE: This morning Ms. Sanchez is still very sleepy. Overnight she admitted to smoking heroin prior to her asthma exacerbation. Although very sleepy and on BiPAP, she was able to tell me that smoking heroin is "not usual" for her. Otherwise denied any pain, nausea, shortness of breath just stated that she wanted to continue sleeping. Exam Vital Signs Vital Sign - Last Date Time Temp Pulse Resp B/P Pulse Ox O2 Delivery O2 Flow Rate FiO2 07/14/16 07:57 117 18 105/58 98 21 07/14/16 07:55 CPAP/BIPAP 07/14/16 07:55 36.7 07/13/16 03:16 10 Intake and Output 07/13/16 07/13/16 07/14/16 Cumulative From/Thru 15:00 23:00 07:00 07/13/16 05:28 - 07/14/16 06:14 Intake Total 846 ml 1429 ml 2275 ml Output Total 450 ml 500 ml 950 ml Balance 396 ml 929 ml 1325 ml Intake Oral 0 ml 300 ml 300 ml IV Total 846 ml 1129 ml 1975 ml Output Urine Total 450 ml 500 ml 950 ml # Bowel Movements 0 0 Exam Gemeral: Pale, alert and oriented, on BiPAP. Arousable but otherwise very sleepy HEENT: Anicteric sclera. NCAT, normal oropharynx, PERRL Pulmonary:Diffuse wheezing. With normal rate and effort CV: tachycardic, Regular rhythm. No murmur, gallop or rub Abdomen: soft, nontender, normal bowel sounds Extremities: No edema. Skin: Free of rash or lesions. . IVs and Medications Medications Reviewed: Medications were reviewed in detail Lab and Diagnostics pH 7.376 / pCO2 37.2 / pO2 155 / HCO3- 21.3 / FiO2 30% Result Diagram: 07/14/1681907/14/16819 X-Rays, CTs and MRIs Date of Service: 07/13/16 X-RAY CHEST ONE VIEW, PORTABLE IMPRESSION: Mild interstitial prominence and mild hyperinflation in this patient with history of asthma. No focal lung consolidation. Dictated by: Ash PATRICIO Interpreted: Rey Cuevas MD on 07/13/2016 at 9: 16 . Assessment & Plan Georgia Sanchez is a 26 year old female with asthma and history of intubation x1 who presented to [facility] emergency department via EMS in acute respiratory distress after having smoked heroin. 1. Acute Hypoxic Respiratory Failure secondary to asthma exacerbation. Present on admission, improving 2. Asthma exacerbation likely secondary to smoking heroin. Present on admission 3. Substance use disorder (heroin, tobacco), present on admission 4. Hypocalcemia, not present on admission 5. Leukocytosis improving, possible Systemic inflammatory response. Present on admission 6. Severe anxiety secondary to SOB and heroin withdrawal and possibly underlying chronic anxiety, present on admission 7. Medication non-compliance 8. Thrombocytosis resolved, present on admission Asthmatic patient who is currently saturating well on BiPAP at room air. Lorazepam given for anxiety and possible heroin withdrawal symptoms. Leukocytosis resolved. - Continue supportive treatment with BiPAP, DuoNebs, Solu-Medrol 80mg IV q8hrs, lorazepam for anxiety, singulair - When patient is more alert, need to address many issues: - substance use (heroin, others?) - public health worker when alert - triggers: substance use, second hand smoke, animals, pollens, chemical exposures - medication non-compliance - Urinary tox screen + for opiates +, methadone +, amphetamines + - HIV and hepatitis screening ordered Thank you for this consultation. Total time: 25 minutes Pulmonary/Critical Care Attending Ms Sanchez is a 26yo woman with known asthma and a prior exacerbation requiring intubation and mechanical ventilation who was admitted 07/12 with acute exacerbation of asthma with hypoxic and hypercapneic respiratory failure. She has responded to usual therapies and BiPAP support with an improved ABG and decreased distress. Over the past 24hours, her poor expiratory flows have improved, although she remains quite tight. We have been able to wean her off BiPAP support with reasonable oxygenation. She has needed several doses of lorazepam to deal with her dyspnea-induced anxiety and tachypnea. We will continue our current level of aggressive support while awaiting decrease in her airway inflammation and need for BiPAP. We will need to obtain more Hx about her triggers and level of function prior to the acute decompensation. I suspect that she will need significant asthma education and we will need to investigate her social support to prevent further exacerbations. VTE Prophylaxis: Sub-Q Heparin (Unfractionated) Resuscitation Status: CPR: Attempt Resuscitation Attending Statement The patient was seen and examined together with Dr. Lux today and I have added additional information to the note above. Hattie Lux DO Jul 14, 2016 10:59 Keith Gill MD Jul 14, 2016 18:09
[2016-07-14] MEDS: Sodium-Potassium Phosphorus Packet PO SCH ×3 (13:30→21:59)
--- NOTE | 2016-07-14 14:04 | NUR ---
NUTRITION FOLLOW-UP: ASSESS: Pt is a 26yo F admitted to CCU for respiratory distress and asthma. She is currently on BIPAP and continues to be somewhat drowsy. Diet was able to be advanced to General. No PO recorded yet. PMHX: Asthma, BIPAP LABS: Reviewed. Cl 114, CO2 16, Ophthalmologist Retina Specialist .37, Ca 7.1, phos 2.3 MEDS: Reviewed. Solu-medrol GI: 0 BM SKIN: Bernard 14, some cellulitis in legs CURRENT WTS: 61.1kg, BMI 24.6kg/m2, IBW 50kg. Question accuracy of admit wt of 40.9kg. Pt does not appear to be 40.9kg. Wt of 61kg seems much more accurate. DIET: General, no PO yet EST. NEEDS: Kcals: 1530-1830kcal/day (25-30kcal/kg) Pro: 60-75g/day (1.0-1.2g/kg)) Fluids: 1530-1830ml/day (25-30ml/kg) NUTRITION DIAGNOSIS: 1.) Inadequate oral intake related to decreased ability to consume sufficient energy as evidenced by current NPO status--IMPROVING NUTRITION INTERVENTION: 1.) Will monitor for PO intake MONITOR / EVAL: PO, BIPAP, wt, GI, labs, POC, nutrition status. Will continue to monitor per moderate nutrition risk guidelines.
--- NOTE | 2016-07-14 16:29 | NUR ---
Respiratory Status.. remained on bipap until 1100 and was transitioned to room air and ryan this well with stable SpO2 and no futher distress. Has received Ativan 1mg IV x2 for anxiety and this has been effective in relaxing pt and allowing her to sleep. Has been up to the commode and ryan activity well. Is now PCC status.
--- NOTE | 2016-07-14 16:53 | NUR ---
Social Work: Screen D: Per EMR review, pt is a 26 year old female admitted for asthma and respiratory failure. Pt is [employer]. PCP is Juan Encinas MD. NOK is Shaun Sanchez, father. Advanced directives not completed- [facility] will follow up with pt about this. Readmit score is low, 0/8. Pt discussed in am rounds. pt is not medically stable at this time. Pt's UDS was positive for OPI and METH. Pt will require CD assessment however she is not appropriate for assessment today. states that pt should be appropriate tomorrow. A: Pt who is I at baseline. P: Anticipate pt to discharge home; VP [facility]CILL[facility] to see pt to complete CD assessment and offer CDP bedside if JAMI is obtained. Oma Martinez MSW
[2016-07-15] VITALS (9 sets, daily range): BP systolic 97–110; BP diastolic 50–66; PULSE 87–117; RESP 16–30; O2SAT 95–100
[2016-07-15] MEDS: Albuterol-Ipratropium 3 mL Inhalation Solution NEB SCH ×6 (00:21→19:57)
[2016-07-15 03:50] LABS: BASOPHILS % (AUTO) 0.1 % (0-3); EOSINOPHILS % (AUTO) 0.1 % (0-5); MONOCYTES % (AUTO) 4.5 % (4-12); Mean Corpuscular Hemoglobin 30.9 pg (27.0-35.0); Mean Corpuscular Volume 91.8 fL (81-100); NEUTROPHILS % (AUTO) 84.9 % (40-74); Platelet Count 298 bil/L (150-400)
[2016-07-15 04:54] LABS: Phosphorus 2.4 mg/dL (2.5-4.9)
--- NOTE | 2016-07-15 06:26 | NUR ---
Resp/anxiety pt on Bipap at 35% all night, gets occasional coughing spells and becomes very anxious. Ativan given x2 with good intermittent results. Sats in mid to high 90's all night.
--- NOTE | 2016-07-15 07:29 | PCM.PNMED ---
Subjective Date of Service Jul 15, 2016 Subjective Patient is sedated and on BiPAP. ROS subjective her not obtainable. Overnight events reviewed. She has had problems with anxiety requiring 2 mg of Ativan as well as bronchospasm and has been on BiPAP all night. She continues to have slow progress. Exam Vital Signs Vital Sign - Last Date Time Temp Pulse Resp B/P Pulse Ox O2 Delivery O2 Flow Rate FiO2 07/15/16 04:40 110 19 98 30 07/15/16 04:00 36.7 100/59 BiPAP 07/14/16 20:00 2.00 Intake and Output 07/14/16 07/14/16 07/15/16 Cumulative From/Thru 15:00 23:00 07:00 07/13/16 05:28 - 07/15/16 05:42 Intake Total 1456 ml 600 ml 4331 ml Output Total 800 ml 350 ml 2100 ml Balance 656 ml 250 ml 2231 ml Intake Oral 170 ml 600 ml 1070 ml IV Total 1286 ml 3261 ml Output Urine Total 800 ml 350 ml 2100 ml # Voids 1 1 # Bowel Movements 0 0 Exam Sedated, on BiPAP. Anicteric sclera. Lungs are notable for reasonable air movement with total volume of 800. She is expiratory wheezing diffusely. With normal rate and effort Heart is regular without murmur gallop or rub Abdomen soft nontender, flat Extremities are free of edema. Skin is free of rash or lesions. IVs and Medications Medications Reviewed: Medications were reviewed in detail Lab and Diagnostics Result Diagram: 07/15/16 0340 07/15/16 0340 X-Rays, CTs and MRIs Date of Service: 07/13/16 X-RAY CHEST ONE VIEW, PORTABLE IMPRESSION: Mild interstitial prominence and mild hyperinflation in this patient with history of asthma. No focal lung consolidation. Dictated by: Ash Joyner RRDererll Interpreted: Rey Cuevas MD on 07/13/2016 at 9: 16 . Assessment & Plan #. Acute Hypoxic Respiratory Failure. Present on admission, this is stable but not dramatically improved. She did require BiPAP overnight. Due to Asthma exacerbation. Differential diagnosis includes Pulmonary embolism ( low probability with low Well score), Pneumonia also felt to be less likely. - oxygen supplementation and BIPAP - treat underlying cause (see below) No change in treatment plan for today. We will also treat anxiety to help tolerate the BiPAP. We will I will continue prednisone 40 daily. #. Asthma exacerbation. Present on admission, this is stable and slowly improving. Severe with prior history of exacerbation requiring intubation. Trigger unclear but a combination of pollen and dog hair exposure - continue DuoNeb scheduled - systemic steroids prednisone 40 mg daily. - avoid triggers - smoking cessation encouraged - Singulair daily -No change to current medical therapy. #. Leukocytosis, Acute with possible Systemic inflammatory response. Present on admission and improving. Chest X ray showed no pneumonia of pleural effusion - monitor for infection such as pneumonia Doubt viral infection. She has multiple triggers of noncompliance, possible allergies and currently smoking heroin. #. Thrombocytosis, Chronic and stable. Likely reactive with no complications #. Nicotine dependence, she did state that she quit 3 weeks ago. Cessation discussed and encouraged. Failed attempts to stop prior, last smoking 3 weeks prior but is a current second hand exposure - Nicotine patch upon request #. Severe anxiety. POA. Will continue to use lorazepam as needed. #. Polysubstance abuse. The patient's urine tox did come back positive for opiates as well as methamphetamines. She did report smoking heroin which is part of her trigger as well as medication noncompliance and possible allergens from our care. There is no evidence of severe moderate withdrawal at this point. We will continue to follow clinically. Full resuscitation Inpatient status. VTE Prophylaxis: Sub-Q Heparin (Unfractionated) Resuscitation Status: CPR: Attempt Resuscitation She was transferred from CCU to PCU status on July 14. VTE Prophylaxis: Sub-Q Heparin (Unfractionated) Resuscitation Status: CPR: Attempt Resuscitation Americo Woods MD Jul 15, 2016 07:30
[2016-07-15] MEDS: predniSONE 20 mg Tablet PO SCH (08:24)
[2016-07-15] MEDS: Heparin 5,000 Unit/mL Inj SUBQ SCH ×2 (08:24→16:20)
--- NOTE | 2016-07-15 13:26 | PCM.PNMED ---
Subjective Date of Service Jul 15, 2016 Subjective Overnight Ms. Sanchez required BiPAP and Ativan. When I talked with her this morning, she was on 4 liters by DC. I was able to spend some time talking to patient. She states that she started to use her albuterol inhaler every 2-3 hours for a couple of days because of a "cold" then she smoked heroin. An hour after the heroin is when EMS was called to the home. She states that this is not the first time that she has smoked heroin. Denies using alcohol, marijuana or other recreational drugs. Quit smoking cigarettes 3 weeks ago (she has quit in the past as well). She stopped using her control inhaler months ago because "it didn't help." She had been on prednisone 20mg PO daily in the past but stopped that as well. (I didn't quite understand the length of time she had been on prednisone.) She required intubation in [place] about a year ago for an asthma exacerbation. Denies allergies other than hayfever-type allergies. Does not use a regular allergy medication or any other medication at this time other than the inhaled albuterol. She lives with her boyfriend and others (boyfriend' s family?) in a trailer with dogs. She herself has a little dog but does not own any other animals. Her boyfriend does not smoke but others in the home smoke. She and her boyfriend were planning to move out today (07/15) but with her hospitalization she does not know the status of that. To my knowledge, no one has been to visit her during this hospitalization. Denies any exposures to chemicals and is unemployed. She was born and raised in [place] and has not done any traveling outside of the area. She has been eating well. Denies pain, nausea, shortness of breath, headache. She was concerned how she was going to get back home to [place] and asked if we can provide a taxi. . Exam Vital Signs Vital Sign - Last Date Time Temp Pulse Resp B/P Pulse Ox O2 Delivery O2 Flow Rate FiO2 07/15/16 12:00 37.0 117 18 108/66 98 Nasal Cannula 2.00 07/15/16 08:00 35 Intake and Output 07/14/16 07/14/16 07/15/16 Cumulative From/Thru 15:00 23:00 07:00 07/13/16 05:28 - 07/15/16 05:42 Intake Total 1456 ml 600 ml 4331 ml Output Total 800 ml 350 ml 2100 ml Balance 656 ml 250 ml 2231 ml Intake Oral 170 ml 600 ml 1070 ml IV Total 1286 ml 3261 ml Output Urine Total 800 ml 350 ml 2100 ml # Voids 1 1 # Bowel Movements 0 0 Exam Gemeral: Alert and oriented, on 4L by DC. HEENT: Anicteric sclera. NCAT, normal oropharynx, PERRL Pulmonary: Diffuse wheezing. Normal rate and effort. Able to speak in full sentences CV: tachycardic, Regular rhythm. No murmur, gallop or rub Abdomen: soft, nontender, normal bowel sounds. Extremities: No edema. Skin: Free of rash or lesions. IVs and Medications Medications Reviewed: Medications were reviewed in detail Lab and Diagnostics Result Diagram: 07/15/16 0340 07/15/16 0340 X-Rays, CTs and MRIs Date of Service: 07/13/16 X-RAY CHEST ONE VIEW, PORTABLE IMPRESSION: Mild interstitial prominence and mild hyperinflation in this patient with history of asthma. No focal lung consolidation. Dictated by: Ash Joyner RRDerrell Interpreted: eRy Cuevas MD on 07/13/2016 at 9: 16 . Assessment & Plan Georgia Sanchez is a 26 year old female with asthma and history of intubation x1 who presented to [facility] emergency department via EMS in acute respiratory distress after having smoked heroin. Day 4 (07/15) 1. Acute Hypoxic & hypercapnic Respiratory Failure secondary to asthma exacerbation. Present on admission, improving 2. Asthma exacerbation likely secondary to smoking heroin. Present on admission 3. Substance use disorder (heroin, tobacco, methamphetamine(?)), present on admission 4. Leukocytosis improving, possible Systemic inflammatory response, now likely from steroids. Present on admission 5. Severe anxiety secondary to SOB and heroin withdrawal and possibly underlying chronic anxiety, present on admission, improving 6. Medication non-compliance, present on admission 7. Thrombocytosis resolved, present on admission -Asthmatic patient who is currently saturating well on 2L by DC. Lorazepam given for anxiety and possible heroin withdrawal symptoms. Continue supportive treatment with oxygen, DuoNebs, oral prednisone, lorazepam for anxiety, Singulair - I believe patient's biggest hurdles to her wellness is her lack of understanding of asthma management and lack of social support. I was able to spend some time with patient in an attempt to educate her regarding good asthma control. Discussed steroid inhaler for preventative measures and the proper use of albuterol inhaler, when to seek urgent or emergent medical care, identify and avoid triggers, need for medication compliance, smoking & recreational drug use cessation. These will need to be reinforced with patient again and possibly with the help of respiratory therapists and social workers. I doubt patient has much social support as her boyfriend has not visited her nor has any friends. She attempted to get in touch with her father while I was in the room but was unsuccessful. - Social workers planning to see patient - Urinary tox screen + for opiates, methadone +, amphetamines + - HIV and hepatitis screening negative Thank you for this consultation. Total time: 45 minutes Pulmonary/Critical Care Attending Ms Sanchez is a 26yo woman with known asthma and a prior exacerbation requiring intubation and mechanical ventilation who was admitted 07/12 with acute exacerbation of asthma with hypoxic and hypercapneic respiratory failure. She has responded slowly to usual therapies and BiPAP support. We were able to wean her off BiPAP support rapidly with good oxygenation. She continues to have resting hypoxia but her air flows are improving. Environmental exposures, second hand smoking, smoking heroin, and poor asthma knowledge/care practice all contributed to her exacerbation. We will continue our current level of aggressive support while awaiting decrease in her airway inflammation and improvement in her oxygenation. She will need significant asthma education to prevent further exacerbations and hospitalization. VTE Prophylaxis: Sub-Q Heparin (Unfractionated) Resuscitation Status: CPR: Attempt Resuscitation Attending Statement The patient was seen and examined together with Dr. Lux on 07/15 and I have added additional information to the note above. Hattie Lux DO Jul 15, 2016 13:26 Keith Gill MD Jul 16, 2016 11:02
--- NOTE | 2016-07-15 17:31 | NUR ---
Anxiety/Respiratory Pt reporting anxiety this am and tremulous when removing BiPAP for am medications and breakfast, Pt placed on 2L O2 via nasal cannula. Pt tolerated being off BiPAP for length of meal, Pt reported anxiety levels still high, Pt placed back on BiPAP per Pt request and PRN IV lorazepam given which Pt reported was effective. Pt also reported that anxiety seemed to be her biggest trigger for asthmatic events. Once Pt's anxiety levels were lower, BiPAP successfully swapped for 2L O2 via nasal cannula which Pt wore for remainder of shift.
[2016-07-16] VITALS (8 sets, daily range): BP systolic 95–107; BP diastolic 57–66; PULSE 90–115; RESP 16–22; O2SAT 93–98
[2016-07-16] MEDS: Heparin 5,000 Unit/mL Inj SUBQ SCH ×2 (00:15→08:08)
[2016-07-16] MEDS: Albuterol-Ipratropium 3 mL Inhalation Solution NEB SCH ×4 (03:11→12:30)
[2016-07-16 04:37] LABS: BASOPHILS % (AUTO) 0.1 % (0-3); EOSINOPHILS % (AUTO) 2.3 % (0-5); MONOCYTES % (AUTO) 5.8 % (4-12); Mean Corpuscular Hemoglobin 30.4 pg (27.0-35.0); NEUTROPHILS % (AUTO) 65.8 % (40-74); Platelet Count 280 bil/L (150-400)
--- NOTE | 2016-07-16 05:36 | NUR ---
Anxiety/Asthma attack Pt requesting PRN Ativan x1 this shift and effective. Pt able to rest for most of the shift. Pt awoken at 0300 requesting a breathing treatment and having some difficulty breathing. Pt using pursed lip breathing technique and nursing paged RT for breathing treatment. Pt lung sound wheezy and coarse SpO2 90-94% on 2L NC. Pt starting to calm and breath easier before treatment. Treatment started and pt stated "I feel much better" VSS and pt is not on Tele.
[2016-07-16] MEDS: predniSONE 20 mg Tablet PO SCH (08:08)
--- NOTE | 2016-07-16 10:06 | PCM.PNMED ---
Subjective Date of Service Jul 16, 2016 Subjective She is feeling better today. Less anxiety. She is still short of breath and has some wheezing. She has a dry cough. No chest pain or palpitations. No abdominal pain or nausea. She has been off BiPAP all night. Exam Vital Signs Vital Sign - Last Date Time Temp Pulse Resp B/P Pulse Ox O2 Delivery O2 Flow Rate FiO2 07/16/16 08:15 115 22 97 Nasal Cannula 2.00 07/16/16 08:05 36.9 103/58 07/15/16 08:00 35 Intake and Output 07/15/16 07/15/16 07/16/16 Cumulative From/Thru 15:00 23:00 07:00 07/13/16 05:28 - 07/16/16 06:03 Intake Total 1151 ml 300 ml 5782 ml Output Total 1900 ml 200 ml 4200 ml Balance -749 ml 100 ml 1582 ml Intake Oral 1151 ml 300 ml 2521 ml IV Total 3261 ml Output Urine Total 1900 ml 200 ml 4200 ml # Voids 2 3 # Bowel Movements 1 1 Exam Alert and oriented -3, no distress. Fluent speech, slightly unkempt. Anicteric sclera. Lungs are less wheezy diffusely with normal rate and effort Heart is regular without murmur gallop or rub Abdomen soft nontender, flat Extremities are free of edema. Skin is free of rash or lesions. IVs and Medications Medications Reviewed: Medications were reviewed in detail Lab and Diagnostics Result Diagram: 07/16/1642407/16/16424 X-Rays, CTs and MRIs Date of Service: 07/13/16 X-RAY CHEST ONE VIEW, PORTABLE IMPRESSION: Mild interstitial prominence and mild hyperinflation in this patient with history of asthma. No focal lung consolidation. Dictated by: Ash Joyner RRDerrell Interpreted: Rey Cuevas MD on 07/13/2016 at 9: 16 . Assessment & Plan #. Asthma exacerbation. Present on admission, this is stable and will rapidly improving at this point. Severe with prior history of exacerbation requiring intubation. Trigger unclear but a combination of pollen and dog hair exposure - continue DuoNeb scheduled - systemic steroids prednisone 40 mg daily. - avoid triggers - smoking cessation encouraged - Singulair daily -No change to current medical therapy. We will get her up to the chair started to walk around today to see how her dyspnea does with exertion. #. Thrombocytosis, Chronic and stable. Likely reactive with no complications #. Nicotine dependence, she did state that she quit 3 weeks ago. Cessation discussed and encouraged. Failed attempts to stop prior, last smoking 3 weeks prior but is a current second hand exposure - Nicotine patch upon request #. Severe anxiety. POA. This is stable to slightly improved. Will continue to use lorazepam as needed. #. Polysubstance abuse. The patient's urine tox did come back positive for opiates as well as methamphetamines. She did report smoking heroin which is part of her trigger as well as medication noncompliance and possible allergens from our care. There is no evidence of severe moderate withdrawal at this point. We will continue to follow clinically. We will do a chemical dependency assessment today and offer her resources and further explore her discharge social situation. VTE Prophylaxis: Sub-Q Heparin (Unfractionated) Resuscitation Status: CPR: Attempt Resuscitation Americo Woods MD Jul 16, 2016 10:06
[2016-07-16] MEDS ORDERED: LORazepam 1 mg Tablet PO PRN (10:10)
--- NOTE | 2016-07-16 13:11 | PCM.DIMED ---
Discharge Instructions Date of Service Jul 16, 2016 Dates of Hospitalization Jul 13, 2016 at 04:25 Discharge Diagnosis Discharge Diagnosis #. Asthma exacerbation. Improved. #. Nicotine dependence, improved #. Severe anxiety. Improved #. Polysubstance abuse and heroin addiction. Ongoing Diet No restrictions Activity No restrictions Patient Instructions He must not smoke cigarettes or heroin. If you continue to smoke either he will likely . Please consider reentering treatment as you have before for heroin addiction. Follow-up Provider: Juan Encinas MD Follow-up with PCP in: 1 week Americo Woods MD Jul 16, 2016 13:11
[2016-07-16] MEDS ORDERED: LORA1TAB PO (13:13)
[2016-07-16] MEDS ORDERED: ALBU8.5H2 INHALATION (13:13)
[2016-07-16] MEDS ORDERED: PRE20 PO (13:13)
--- NOTE | 2016-07-16 13:17 | PCM.DC.MED ---
Discharge Summary Date of Service Jul 16, 2016 Dates of Hospitalization Date of Hospital Admission Jul 13, 2016 at 04:25 Date of Discharge: Jul 16, 2016 Providers: Admitting Physician: Isaiah Nicole MD Primary Care Physician: Juan Encinas MD Attending Physician: Isaiah Nicole MD Diagnosis at Time of Discharge Diagnosis at Time of Discharge #. Asthma exacerbation. Improved. #. Nicotine dependence, improved #. Severe anxiety. Improved #. Polysubstance abuse and heroin addiction. Ongoing Consultations Pulmonary critical care Procedures XRay, CTs & MRIs Date of Service: 07/13/16 X-RAY CHEST ONE VIEW, PORTABLE IMPRESSION: Mild interstitial prominence and mild hyperinflation in this patient with history of asthma. No focal lung consolidation. Dictated by: Ash PATRICIO Interpreted: Rey Cuevas MD on 07/13/2016 at 9: 16 . ECG 12 Lead Sinus rhythm Cardiac Echo Impression Not obtained Invasive Procedures None Brief History Georgia Sanchez is a 26 year old female with Asthma who presents to [facility] emergency department via EMS in acute respiratory distress. Patient reported the onset was just prior to arrival. Patient was seen by EMS earlier tonight but refused transport. She had access to her inhalers but her not her nebulizer, receiving several nebulizer treatments from EMS. They left her improved, but were then called back to the residence several hours later as she developed difficulty breathing again. Trigger was likely dogs at the home and possible allergies from pollens. Denies any new carpets They found the patient with low saturation around 70s and tachycardic. She received 125mg of Solu-Medrol, 2x doses of epinephrine, and continuous albuterol treatments. Patient is very anxious and has been requesting a benzodiazepine for her anxiety. The patient quit smoking cigarettes 3 weeks ago but still lives in a trailer with other smokers. Patient is unable to provide any further history due to her severe respiratory distress. Case discussed with Dr Javier, Magnesium and rounds of bronchodilator initially ineffective but BIPAP provide some improvement, especially addition of benzodiazepines while calmed her down Hospital Course #. Asthma exacerbation. Present on admission, this is stable and will rapidly improving at this point. Severe with prior history of exacerbation requiring intubation. Trigger unclear but a combination of pollen and dog hair exposure - continue DuoNeb scheduled - systemic steroids prednisone 40 mg daily. - avoid triggers - smoking cessation encouraged - Singulair daily She did well with IV corticosteroids as well as Ativan and morphine and bronchodilators. She did require BiPAP support for the first 48 hours of her admission. Last 24 hours of admission she weaned off BiPAP was able to wean off oxygen completely and ambulated on room air without difficulty. #. Thrombocytosis, Chronic and stable. Likely reactive with no complications, this caused no other problems. #. Nicotine dependence, she did state that she quit 3 weeks ago. Cessation discussed and encouraged. Failed attempts to stop prior, last smoking 3 weeks prior but is a current second hand exposure - Nicotine patch upon request, this caused other problems. #. Severe anxiety. POA. This is stable to slightly improved. Will continue to use lorazepam as needed. She did have significant anxiety on the hospital record for more lorazepam which was ultimately tapered. #. Polysubstance abuse. The patient's urine tox did come back positive for opiates as well as methamphetamines. She did report smoking heroin which is part of her trigger as well as medication noncompliance and possible allergens from our care. There is no evidence of severe moderate withdrawal at this point. We will continue to follow clinically. We will do a chemical dependency assessment today and offer her resources and further explore her discharge social situation. She does profess to being addicted to heroin. She is using this for several years. Importance of not using her one considering another entry into rehabilitation which she has done once was discussed at length. Furthermore the probability of her eminent if she continues to smoke heroin with her severe asthma was further reinforced. Exam Vital Signs (Last) Date Time Temp Pulse Resp B/P Pulse Ox O2 Delivery O2 Flow Rate FiO2 07/16/16 12:34 95 Room Air 07/16/16 11:44 36.8 102 18 107/66 07/16/16 08:15 2.00 07/15/16 08:00 35 Exam Patient seen and examined on the day of discharge Test 07/13/16 02:50 07/13/16 15:46 07/14/16 08:20 07/15/16 03:40 Band Neutrophils % 0% (1-5) Prothrombin Time 11.5sec (8.1-12.5) Prothromb Time International Ratio 1.07ratio Activated Partial Thromboplast Time 26.0sec (22.8-33.0) Troponin T 0.010ug/L (0.0-0.011) Pro-B-Type Natriuretic Peptide 22pg/mL (0-130) Procalcitonin 0.04ng/mL (0.00-0.08) Urine Color Yellow (YELLOW) Urine Appearance Clear (CLEAR,HAZY) Urine pH 5.0 (5.0-8.0) Urine Specific [place] 1.030 (1.003-1.035) Urine Protein 100mg/dL (NEG,TRACE) Urine Glucose (UA) Negativemg/dL (NEGATIVE) Urine Ketones Negativemg/dL (NEGATIVE) Urine Occult Blood Negative (NEGATIVE) Urine Nitrite Negative (NEGATIVE) Urine Bilirubin Negative (NEGATIVE) Urine Urobilinogen Normalmg/dL (NORMAL) Urine Leukocyte Esterase Negative (NEGATIVE) Urine RBC 0-2/hpf (0-2) Urine WBC 0-5/hpf (0-5) Urine Epithelial Cells Moderate/hpf (NONE-MOD) Urine Crystals None seen (NONE SEEN) Urine Bacteria Few/hpf (NONE-FEW) Urine Hyaline Casts None/lpf (NONE) Urine Granular Casts None seen (NONE SEEN) Urine Waxy Casts None seen (NONE SEEN) Urine Red Blood Cell Casts None seen (NONE SEEN) Urine White Blood Cell Casts None seen (NONE SEEN) Urine Mucus Present (None Seen) Urine Trichomonas None seen (NONE SEEN) Urine Yeast None (NONE SEEN) Urinalysis Comment None Urine Culture Reflexed Not indicated Urine Opiates Screen Positive Urine Methadone Screen Positive Urine Barbiturates Screen Negative Urine Amphetamines Screen Positive Urine Benzodiazepines Screen Negative Urine Cocaine Metabolite Screen Negative Urine Cannabinoids Screen Negative Hepatitis B Surface Antigen Negative (Negative) Hepatitis C Antibody <0.1s/co ratio (0.0-0.9) HIV (1&2) Ag and Ab, 4th Generation Non reactive (Non Reactive) Phosphorus Level 2.4mg/dL (2.5-4.9) Magnesium Level 2.0mg/dL (1.6-2.6) Hold Morel Top Tube Received (Received) Test 07/16/16 04:25 White Blood Count 10.5th/mm3 (3.8-10.1) Red Blood Count 4.21mil/mm3 (3.90-5.20) Hemoglobin 12.8g/dL (12.0-15.6) Hematocrit 38.3% (35.0-46.0) Mean Corpuscular Volume 91.0fL (81-100) Mean Corpuscular Hemoglobin 30.4pg (27.0-35.0) Mean Corpuscular Hemoglobin Concent 33.4% (32.0-37.0) Red Cell Distribution Width 12.3% (12.3-15.4) Platelet Count 280bil/L (150-400) Neutrophils (%) (Auto) 65.8% (40-74) Lymphocytes (%) (Auto) 25.8% (14-46) Monocytes (%) (Auto) 5.8% (4-12) Eosinophils (%) (Auto) 2.3% (0-5) Basophils (%) (Auto) 0.1% (0-3) Sodium Level 141mEq/L (134-144) Potassium Level 3.8mEq/L (3.5-5.2) Chloride Level 104mEq/L (97-108) Carbon Dioxide Level 24mmol/L (18-29) Blood Urea Nitrogen 15mg/dL (6-20) Creatinine 0.49mg/dL (0.57-1.00) Estimat Glomerular Filtration Rate 222mL/min (>59) Glucose Level 87mg/dL (60-99) Calcium Level 8.7mg/dL (8.5-10.1) Total Bilirubin 0.3mg/dL (0.0-1.2) Aspartate Amino Transf (AST/SGOT) 14U/L (0-50) Alanine Aminotransferase (ALT/SGPT) 13U/L (0-32) Alkaline Phosphatase 65U/L (25-150) Total Protein 5.5g/dL (6.4-8.4) Albumin 3.5g/dL (3.4-5.0) Discharge Medications Discharge Medications Prednisone (PredniSONE) 20 Mg Tablet 40 MG PO DAILY Prescribed by: AMERICO WOODS MD As needed Albuterol HFA (Proair HFA) 8.5 Gm Hfa.aer.ad 2 PUFFS INHALATION Q4H PRN PRN dyspnea Prescribed by: AMERICO WOODS MD Lorazepam (Lorazepam) 1 Mg Tablet 1 MG PO TID PRN PRN For Anxiety Prescribed by: AMERICO WOODS MD Followup Plan Disposition: Home Discharge Diet: No restrictions Discharge Activity: No restrictions Patient Instructions He must not smoke cigarettes or heroin. If you continue to smoke either he will likely . Please consider reentering treatment as you have before for heroin addiction. Follow-up Provider: Juan Encinas MD Follow-up with PCP in: 1 week Time spent 45 minutes Americo Woods MD Jul 16, 2016 13:17
--- NOTE | 2016-07-16 13:44 | NUR ---
Social Work: Discharge Data: Pt is on day 3 of hospitalization. D/C orders are in. HALL MANAGER met with pt regarding CD use, pt declines to talk with HALL MANAGER stating she is getting set up through [facility] and doesn't want to talk with HALL MANAGER about it. HALL MANAGER offered resources. Pt declines. Pt inquired regarding transportation home. HALL MANAGER set up with [facility] taxi home through [employer] at 2:15pm. No further d/c planning needs at this time. HALL MANAGER will continue to follow if needs arise. Assessment: Pt who is independent at baseline, drug use. Plan: Pt will d/c home via taxi at 2:15pm. No further d/c planning needs at this time. HALL MANAGER will continue to follow if needs arise. NISREEN Hernandes
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
== END 2016-07-16 14:50 | disposition home or self-care (01) | DRG 189 ==
LOC: SED 04:00 → CCU 04:25 → PCC 07-14 14:25
PROVIDERS: ADMIT Hospitalist; ATTEND Hospitalist
PROC: 5A09458 Assistance with Respiratory Ventilation, 24-96 Consecutive Hours, Intermittent Positive Airway Pressure (ICD-10-PCS; principal; 2016-07-13)
PROC: 4A033R1 Measurement of Arterial Saturation, Peripheral, Percutaneous Approach (ICD-10-PCS; 2016-07-13)
DX: J96.01 Acute respiratory failure with hypoxia (principal); J45.901 Unspecified asthma with (acute) exacerbation; Z87.891 Personal history of nicotine dependence; F41.9 Anxiety disorder, unspecified; Z91.19 Patient's noncompliance with other medical treatment and regimen; F19.10 Other psychoactive substance abuse, uncomplicated; Z77.22 Contact with and (suspected) exposure to environmental tobacco smoke (acute) (chronic); D72.829 Elevated white blood cell count, unspecified; F11.188 Opioid abuse with other opioid-induced disorder